=== PATIENT | female | born 1965 | race Caucasian/White ===

== ENCOUNTER 2020-05-25 12:58 | Emergency (ER) | payer OTHER, SELFPAY ==
[2020-05-25 13:50] VITALS: BP 107/61; PULSE 79; RESP 18; TEMP 36.7; O2SAT 96; BMI 31.3
--- NOTE | 2020-05-25 13:53 | HMH.EDUTC ---
[facility] [place] Clinical Impression: Exposure to COVID-19 virus URI (upper respiratory infection) Qualifiers: URI type: unspecified URI Qualified Code(s): J06.9 - Acute upper respiratory infection, unspecified Disposition: Home, Self-Care Condition on Discharge: Good Instructions: Preventing the Spread of Coronavirus Discharge Instructions Additional Instructions: *Monitor Temp, Over the counter Motrin or Tylenol as directed/as needed Tylenol every 4 hours and Motrin every 6 hours (as long as your family doctor has told you that you can take it) for fever or pain. and straight to ER if unable to lower temp less than 101.0 after medication given *Warm salt water gargles may help to soothe the throat *Throat Lozenges *Warm fluids like tea with honey may help to soothe the throat *Sleep elevated *Humidifier/Vaporizer Follow up IMMEDIATELY for new or worsening symptoms or no Noticeable improvement over the next 48-72 hours. 911 for difficulty breathing or swallowing You was tested for today for COVID19 your test result should be back in the next 24-48 hours, you may call to the [facility] later today or tomorrow to see if your test results are back and the result [phone] [facility] hours are 9am-9pm You was given a handout with instructions for Self Quarantine and Self isolation for while you wait on test results and what to do if they are positive If you are positive the Health Dept will be contacting you also Prescriptions: Azithromycin [Z-Alessandro 250mg Tab*] 250 mg PO UD DOSE PK #6 tab Transmission Status: Pending to [facility] Referrals: Adelina Pope PA [Primary Care Provider] - As needed Time of Disposition: 14:04 Medical Decision Making - Luke Inquiry Pt receiving controlled substance: No Luke was queried for this patient: No Vital Signs: 05/25/20 13:50 Temperature 98.1 F Temperature Source Oral Pulse Rate [Radial] 79 Respiratory Rate 18 Blood Pressure [Right Arm] 107/61 L Blood Pressure Mean [Right Arm] 76 Blood Pressure Source [Right Arm] Automatic Cuff Blood Pressure Position [Right Arm] Sitting 02 Sat by Pulse Oximetry 96 Oxygen Delivery Method Room Air Orders (Tests/Meds): ORDERS Category Date Time Status Covid-19 Nasal PCR ([facility]) Routine Lab 05/25/20 13:47 Ordered Medical Decision Narrative: Patient states that she has taken zpack before without complications and reactions with other medications [facility] [place] - General Stated complaint: Covid exposure Time Seen by Provider: 05/25/20 13:53 Mode of Arrival: Ambulatory Source of Information: Patient Limitations: No Limitations Description of Symptoms (Recalled from Triage Doc. by RN): COVID TEST HEENT Symptoms (Recalled from RN notes): Yes Resp Symptoms (Recalled from RN notes): No Skin Symptoms (Recalled from RN notes): No MS Symptoms (Recalled from RN notes): No Functional Status (Recalled from RN notes): WNL - History of Present Illness Provider Complaint: Patient states that she was exposed to COVID by daughters girlfriend that tested positive for COVID States that she has been having sinus pressure, drainage and cough and at times feels like she cant get a deep breath Denies known fever - Related Data Previous Rx's Medication Instructions Recorded Azithromycin [Z-Alessandro 250mg Tab*] 250 mg PO UD DOSE PK #6 tab 05/25/20 Allergies Allergy/AdvReac Type Severity Reaction Status Date / Time From [facility] Allergy Unknown GI UPSET Uncoded 06/24/17 14:47 - Worker's Comp Is this a Worker's Comp case?: No [facility] History - Hepatitis A Screen Drug use history?: No High risk sexual behaviors?: No History of sexually transmitted infection?: No Currently employed?: No Childcare worker?: No Do you have indoor plumbing?: Yes Do you have electricity?: Yes Attestation statement:: This patient has been screened for Hepatitis A risk factors. I have reviewed the patient's past medical history: Yes Medical Hist
[2020-05-25 14:31] VITALS: BP 107/61; PULSE 79; RESP 18; TEMP 36.7; O2SAT 96
== END 2020-05-25 14:31 | disposition home or self-care (01) ==
PROVIDERS: Emergency Provider Nurse Practitioner; PCP Nurse Practitioner Family
DX: Z20.828 Contact with and (suspected) exposure to other viral communicable diseases (principal); J06.9 Acute upper respiratory infection, unspecified
CPT/HCPCS: 99201; U0003